=== PATIENT | female | born 1965 | race Caucasian/White ===

== ENCOUNTER 2021-11-26 08:23 | Outpatient (CLI) | payer OTHER, SELFPAY ==
--- NOTE | 2021-11-26 12:00 | NEURO_ITS ---
Impression: # Complains of numbness of left hand. # Mild evolving Carpal Tunnel Syndrome bilaterally, left more than right. # Mild left ulnar neuropathy across the elbow. # Normal needle/EMG exam. Nerve Conduction Studies Anti Sensory Summary Table Stim Site NR Peak (ms) P-T Amp (?V) Site1 Site2 Delta-P (ms) Dist (cm) Avila (m/s) Left Median Anti Sensory (2-3nd Digit) Wrist 2.9 92.0 Wrist 2-3nd Digit 2.9 14.0 48 Wrist 2.8 99.6 Wrist 2-3nd Digit 2.9 14.0 48 Right Median Anti Sensory (2-3nd Digit) Wrist 2.8 98.4 Wrist 2-3nd Digit 2.8 14.0 50 Wrist 2.8 115.5 Wrist 2-3nd Digit 2.8 14.0 50 Left Radial Anti Sensory (Base 1st Digit) Wrist 2.0 32.2 Wrist Base 1st Digit 2.0 0.0 Right Radial Anti Sensory (Base 1st Digit) Wrist 2.2 18.0 Wrist Base 1st Digit 2.2 0.0 Left Ulnar Anti Sensory (5th Digit) Wrist 2.4 56.9 Wrist 5th Digit 2.4 14.0 58 Right Ulnar Anti Sensory (5th Digit) Wrist 2.4 61.3 Wrist 5th Digit 2.4 14.0 58 Motor Summary Table Stim Site NR Onset (ms) O-P Amp (mV) Site1 Site2 Delta-0 (ms) Dist (cm) Avila (m/s) Left Median Motor (Abd Poll Brev) Wrist 3.9 3.7 Elbow Wrist 4.6 27.0 59 Elbow 8.5 3.5 Right Median Motor (Abd Poll Brev) Wrist 3.3 4.8 Elbow Wrist 4.7 27.0 57 Elbow 8.0 4.5 Left Ulnar Motor (Abd Dig Minimi) Wrist 2.2 7.7 A Elbow Wrist 5.6 28.0 50 A Elbow 7.8 7.2 B Elbow Wrist 4.1 22.0 54 B Elbow 6.3 3.1 Right Ulnar Motor (Abd Dig Minimi) Wrist 2.2 6.0 A Elbow Wrist 5.2 29.0 56 A Elbow 7.4 4.7 F Wave Studies NR F-Lat (ms) L-R F-Lat (ms) Left Median (Mrkrs) (Abd Poll Brev) 27.05 0.14 Right Median (Mrkrs) (Abd Poll Brev) 27.19 0.14 Left Ulnar (Mrkrs) (Abd Dig Min) 28.56 2.28 Right Ulnar (Mrkrs) (Abd Dig Min) 26.28 2.28 EMG Side Muscle Nerve Root Ins Act Fibs Amp Dur Recrt Comment Right 1stDorInt Ulnar C8-T1 Nml Nml Nml Nml Nml Right Ext Indicis Radial (Post Int) C7-8 Nml Nml Nml Nml Nml Right Ext Digitorum Radial (Post Int) C7-8 Nml Nml Nml Nml Nml Right BrachioRad Radial C5-6 Nml Nml Nml Nml Nml Right PronatorTeres Median C6-7 Nml Nml Nml Nml Nml Right Abd Poll Brev Median C8-T1 Nml Nml Nml Nml Nml Left 1stDorInt Ulnar C8-T1 Nml Nml Nml Nml Nml Left Ext Indicis Radial (Post Int) C7-8 Nml Nml Nml Nml Nml Left Ext Digitorum Radial (Post Int) C7-8 Nml Nml Nml Nml Nml Left BrachioRad Radial C5-6 Nml Nml Nml Nml Nml Left PronatorTeres Median C6-7 Nml Nml Nml Nml Nml Left Abd Poll Brev Median C8-T1 Nml Nml Nml Nml Nml MTDD
== END 2021-11-26 08:24 | disposition home or self-care (01) ==
PROVIDERS: PCP Internal Medicine; Visit Provider Internal Medicine
DX: R20.2 Paresthesia of skin (principal); G56.03 Carpal tunnel syndrome, bilateral upper limbs; G56.22 Lesion of ulnar nerve, left upper limb
CPT/HCPCS: 95886; 95911

== ENCOUNTER 2025-01-31 10:34 | Day surgery (SDC) | payer OTHER, SELFPAY ==
[2025-01-31] VITALS (8 sets, daily range): BP systolic 122–183; BP diastolic 86–118; PULSE 54–97; RESP 12–20; TEMP 36.4–37; O2SAT 97–100
--- NOTE | ~2025-01-31 | XR_ITS ---
EXAMINATION: XR retrograde pyelo w/stent LT DATE: 01/31/2025 15:00 INDICATION: Left internal ureteral stent placement TECHNIQUE: Fluoroscopic images from a left stent placement are submitted for review. 36 seconds of fluoroscopy time. FINDINGS: There is a left double-J internal ureteral stent projecting in expected position, with proximal [place] loop at the level of the renal pelvis and distal loop in the pelvis within the bladder lumen. IMPRESSION: 1. Left internal ureteral stent placement. Please refer to real-time procedural findings for details. Reviewed, dictated and finalized at location O. IMPRESSION: 1. Left internal ureteral stent placement. Please refer to real-time procedur al findings for details.
--- NOTE | ~2025-01-31 | XR_ITS ---
EXAMINATION: XR abdomen/kub 1V DATE: 01/31/2025 14:23 INDICATION: 5 mm proximal left ureteral stone TECHNIQUE: A supine view of the abdomen on 2 radiographs was obtained. COMPARISON: None. FINDINGS: 3 if a 4 mm stone in the proximal left ureter which projects slightly caudal to the left transverse process of L3. No other evident urolithiasis. No dilated gas-filled bowel to suggest obstruction. Lung bases are clear. Heart size is normal. Mild lumbar spondylosis. A few phleboliths in the pelvis appear IMPRESSION: 1. 3-4 mm proximal left ureteral stone. Reviewed, dictated and finalized at location A.
--- NOTE | ~2025-01-31 | CT_ITS ---
EXAMINATION: CT abdomen pelvis wo con DATE: 01/31/2025 11:24 INDICATION: Left flank pain. Left lower quadrant pain TECHNIQUE: Computed tomography (CT) of the abdomen and pelvis was performed without intravenous contrast. The dose-length product was 453.80 mGy-cm. COMPARISON: None. FINDINGS: Small opacities in the lower lungs. Fatty liver. Spleen, adrenal glands, pancreas and gallbladder are unremarkable. Abdominal aorta is partially calcified but is not aneurysmal. There is a 5 mm a calcification in the proximal left ureter causing mild left-sided hydronephrosis. Bladder is unremarkable. No enlarged lymph nodes in the abdomen or pelvis. No free fluid in the abdomen or pelvis. No dilated bowel loops. Moderate amount of stool. No colitis. Mild degenerative change in the lower lumbar spine. IMPRESSION: 1. Mild left-sided hydronephrosis secondary to a 5 mm calcification in the proximal left ureter. 2. Fatty liver Reviewed, dictated and finalized at location A. IMPRESSION: 1. Mild left-sided hydronephrosis secondary to a 5 mm calcification in the prox imal left ureter. 2. Fatty liver
[2025-01-31 10:56] LABS: Hematocrit 44.7 % (37.0-47.0); Hemoglobin 14.7 g/dL (12.0-15.0); Immature Granulocyte Percent A 0.5 % (0-0.5); Lymphocytes Absolute Auto 2.22 K/mm3 (0.9-3.2); Mean Corpuscular HGB Conc 32.9 g/dl (32-36); Mean Corpuscular Hemoglobin 29.1 pg (26-34); Mean Corpuscular Volume 88.3 fl (80-100); Nucleated Red Blood Cells Absolute Auto 0.000 K/mm3 (0.0-0.012); Nucleated Red Blood Cells Perc 0.0 % (0.0-0.2); Platelet Count Result 286 k/mm3 (150-375); Red Blood Count 5.06 M/mm3 (4.2-5.4); White Blood Count 7.3 K/mm3 (4.5-10.0)
[2025-01-31] MEDS: HYDROmorphone HCL INJ (*CRX) 1 MG/ML SYR 0.5 MG IV PUSH ×2 (10:59→12:13)
[2025-01-31] MEDS: ONDANSETRON INJ 4 MG/2 ML VIAL IV PUSH (11:00)
[2025-01-31] MEDS: SODIUM CHLORIDE 0.9% IV 1,000 ML 999 ML IV CONT (11:00)
[2025-01-31 11:10] LABS: Add Urine Microscopic? YES; Appearance Urine Cloudy (Clear); Glucose Urine UA Negative (Negative); Leukocyte Esterase Ur 2+ LEU/UL (Negative); Nitrate Urine Negative (Negative); Non Pathogenic Casts 0-2; Specific Grav Ur 1.023 (1.001-1.035)
--- OUTSIDE RECORDS SUMMARY | 2025-01-31 11:11 | XMS_ITS | Encounter Summary ---
Author Organization [facility] Address [address] [place] [address] Care Team Providers Care Pricing Actuary Name Role Phone Ancelmo Brown MD Primary Care Provider Encounter Details Date Type Department Care Team (Late st Contact Info) Description 05/06/2023 Telephone [facility] - Cardiology [address] [facility], [facility] [address] [place] [address] Ольга Trujillo MD [address] [place] [address] Social History Tobacco Use Types Packs/Day Years Used Date Smoking Tobacco: Never Smokeless Tobacco: Never Alcohol Use Standard Drinks/Week Comments Never 0 (1 standard drink = 0.6 oz pur e alcohol) Comments No Sex and Gender Information Value Date Recorded Sex Assigned at Not on file Legal Sex Female 3:47 PM CDT Gender Identity Not on file Sexual Orientation Not on file documented as of this encounter Functional Status * Is person deaf or have serious hearing difficulty? Answer Date of Assessment Author No 08/26/2022 2:47 PM CDT Josué Ramirez RN * Is person blind or have serious difficulty seeing? Answer Date of Assessment Author No 08/26/2022 2:47 PM CDT Josué Ramirez RN * Does person have serious difficulty walking/climbing stairs? Answer Date of Assessment Author No 08/26/2022 2:47 PM CDT Josué Ramirez RN * Does person have difficulty dressing/bathing? Answer Date of Assessment Author No 08/26/2022 2:47 PM CDT Josué Ramirez RN * Does person have difficulty doing errands alone? Answer Date of Assessment Author No 08/26/2022 2:47 PM CDT Josué Ramirez RN documented as of this encounter Mental Status * Does person have difficulty concentrating/remembering/making decisions? Answer Entry Date Author No 08/26/2022 2:47 PM CDT Josué Ramirez RN documented in this encounter Miscellaneous Notes * Telephone Encounter - Martha Sawyer - 05/06/2023 9:44 AM CST Talked to patient. She will call back to reschedule appt on 06/21/[address] Trujillo. KER SOLES documented in this encounter Plan of Treatment Upcoming Encounters Date Type Department Care Team (Late st Contact Info) Description 08/15/2025 2:00 PM CHALKER SOLES Office Visit [facility] - Cardiology [address] [phone] Duran Harrison MD [address] [facility], [place] [id number] [place] [address] documented as of this encounter Visit Diagnoses Not on filedocumented in this encounter Care Teams Pricing Actuary Relationship Specialty Start Date End Date Ancelmo Brown MD [address] [facility] [address] [place] [address] PCP - General 05/10/22 documented as of this encounter
--- OUTSIDE RECORDS SUMMARY | 2025-01-31 11:11 | XMS_ITS | Clinical Summary ---
Author Organization [facility] Mobile Location, IP Address [address] [place] [address] Care Team Providers Care Clinical Outcomes Manager Name Role Phone Ancelmo Brown MD Primary Care Provider Source Comments [facility] Mobile Location, IP,non-owned Affiliates and Associated Physician Practices is amultiple site organization consisting of ambulatory clinics and hospital sitesin [place], [place], [place]. This disclosure is being madepursuant to the Care Everywhere program and may not contain all information available regarding this patient. Last updated 18.[facility] Mobile Location, [place] Allergies No known active allergies Medications * Be aware that medications may not be up to date on this document. Alwaysverify current medications with the patient. aspirin EC (Ecotrin) 81 MG tablet every 24 hours Activ e acetaminophen (Tylenol) 500 MG tablet Take 1 (one) tablet by mouth every 4 hours as needed for Fever or Pain Maximum allowable Acetaminophen amount = 4 Grams (4000 mg) / 24 hours. Active apixaban (Eliquis) 5 MG tabletIndicatio ns:Paroxysmal atrial fibrillation (HCC) Take 1 (one) tablet by mouth 2 times daily 180 tablet 3 023 Active Additional Information Patient not taking.Reported on 10/19/2022 anastrozole (Arimidex) 1 MG tablet Take 1 (one) tablet by mouth once daily 025 Active buPROPion XL 24hr (Wellbutrin-XL) 300 MG tablet Take 1 (one) tablet by mouth once daily 025 2025 Active metoprolol succinate XL 24hr (Toprol XL) 50 MG tablet TAKE ONE AND ONE-HALF TABLETS ONCE DAILY 135 tablet 3 025 Active metoprolol succinate XL 24hr (Toprol XL) 50 MG tablet Take 1.5 (one and one-half) tablets by mouth once daily 135 tablet 3 024 2024 Discontinued Active Problems Problem Noted Date Diagnosed Date Paroxysmal atrial fibrillation 07/20/2022 Overview (07/20/2022): Added automatically from request for surgery [id number] Encounters Date Type Department Care Team Description 01/24/2025 Refill [facility] - Cardiology [address] [facility], [facility] [address] [place] [address] Cora Cardoso, INSPECTOR [employer]-LOCAL 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 (F LUZONE; FLULAVAL; FLUARIX; AFLURIA QUADRIVALENT; 6MO+), 0.5 ML (IIV4) 05/04/2021,03/29/2020 Social History Tobacco Use Types Packs/Day Years Used Date Smoking Tobacco: Never Smokeless Tobacco: Never Alcohol Use Standard Drinks/Week Comments Never 0 (1 standard drink = 0.6 oz pur e alcohol) Comments No Sex and Gender Information Value Date Recorded Sex Assigned at Not on file Legal Sex Female 3:47 PM CDT Gender Identity Not on file Sexual Orientation Not on file Last Filed Vital Signs Vital Sign Reading Time Taken Comments Blood Pressure 130/82 08/16/2024 1:37 PM [employer]OLEUM LAYER APPRENTICE Pulse 78 08/16/2024 1:37 PM [employer]OLEUM LAYER APPRENTICE Temperature 36.9 C (98.4 F) 08/26/2022 2:30 PM CDT Respiratory Rate 16 08/26/2022 5:45 PM CDT Oxygen Saturation 98% 08/16/2024 1:37 PM [employer]OLEUM LAYER APPRENTICE Inhaled Oxygen Concentration - - Weight 79.8 kg (176 lb) 08/16/2024 1:37 PM [employer]OLEUM LAYER APPRENTICE Height 170.2 cm (5' 7) 08/16/2024 1:37 PM LINOLEUM LAYER APPRENTICE Body Mass Index 27.57 08/16/2024 1:37 PM LINOLEUM LAYER APPRENTICE Plan of Treatment Upcoming Encounters Date Type Department Care Team (Late st Contact Info) Description 08/15/2025 2:00 PM LINOLEUM LAYER APPRENTICE Office Visit [facility] - Cardiology [address] [facility], [facility] [address] [place] [address] Duran Harrison MD [address] [facility], [facility] [address] [place] [address] Health Maintenance Due Date Last Done Comments COLOGUARD (AGES 45-75) - COLON CA SCREENING 1967 COLON MONITORING 1967 COLONOSCOPY - COLON CA SCREENING 1967 CT COLONOGRAPHY - COLON CA SCREENING 1967 Colorectal Cancer Screening 1967 FIT - COLON CA SCREENING 1967 FLEX SIG - COLON CA SCREENING 1967 LIPID TESTING 1967 HIV SCREENING 12/04/1982 DTAP/TDAP/TD VACCINES (1 - Tdap) 12/04/1986 HEPATITIS B VACCINE (1 of 3 - 19+ 3-dose series) 12/04/1986 PAP SMEAR 12/04/1988 PNEUMOCOCCAL VACCINE 50+ (1 of 1 - PCV) 12/04/2017 ZOSTER VACCINE (1 of 2) 12/04/2017 COVID-19 VACCINE (3 - season) 2024 04/13/2021, 07/10/2020 DEPRESSION SCREENING 06/13/2024 INFLUENZA VACCINE (#1) 2025 , 03/29/2020, 03/16/2018, Additional history exists MAMMOGRAM 02/16/2025 02/16/2023, 09/0 11/2022, 12/07/2021, Additional history exists SCREENING FOR DIABETES 06/26/2027 , 08/31/2023, 08/26/2022, Additional history exists HEPATITIS C SCREENING Completed 06/26/2024, 025 HIB VACCINE Aged Out No longer eligi ble based on patient's age to complete this topic HPV VACCINE Aged Out No longer eligi ble based on patient's age to complete this topic MENINGOCOCCAL (Group B) VACCINE SHARED DECISION-MAKING Aged Out No longer eligible based on patient's age to complete this topic MENINGOCOCCAL GROUPS A/C/Y/W VACCINE Aged Out No longer eligible based on patient's age to complete this topic Procedures Procedure Name Priority Date/Time Associated Diagnosis Comments BASIC METABOLIC PANEL (CALCIUM TOTAL) STAT 08/26/2022 6:54 AM CDT Paroxysmal atrial fibrillation from Last 3 Months or Most Recently Relevant to Health Maintenance Results * (ABNORMAL) BASIC METABOLIC PANEL (CALCIUM TOTAL) (08/26/2022 6:54 AM CDT) BUN 19 7 - 26 mg/dL 08/26/2022 7:38 AM [facility] Creatinine 0.81 0.56 - 0.96 mg/dL 08/26/2022 7:38 AM [facility] Sodium 143 136 - 145 mmol/L 08/26/2022 7:38 AM [facility] Potassium 4.5 3.5 - 4.5 mmol/L 08/26/2022 7:38 AM [facility] Chloride 106 98 - 107 mmol/L 08/26/2022 7:38 AM [facility] CO2 26 22 - 29 mmol/L 08/26/2022 7:38 AM [facility] Glucose 109 70 - 115 mg/dL 08/26/2022 7:38 AM [facility] Calcium 9.7 8.4 - 10.2 mg/dL 08/26/2022 7:38 AM [facility] Anion Gap 16 8 - 18 08/26/2022 7:38 AM [facility] BUN/Creatinine Ratio 23 7 - 23 08/26/2022 7:38 AM [facility] Osmolality Calculated 299 270 - 300 mOsm/kg 08/26/2022 7:38 AM [facility] eGFR by CKD-EPI 86(L) >=90 mL/min/1.7 3 m2 08/26/2022 7:38 AM [facility] Blood BLOOD SPECIMEN / Unknown Venipuncture / Unknown 08/26/2022 6:54 AM CDT 08/26/2022 7:16 AM CDT Ольга Trujillo MD LAB - CHEMISTRY RAJESH VALENZUELA Final Result [facility] [address] [place] [address], [facility] [phone] from Last 3 Months or Most Recently Relevant to Health Maintenance Insurance Care Teams Clinical Outcomes Manager Relationship Specialty Start Date End Date Ancelmo Brown MD [address] [place] [address] PCP - General 05/10/22
--- OUTSIDE RECORDS SUMMARY | 2025-01-31 11:11 | XMS_ITS | Clinical Summary ---
Author Organization [facility] D Address [address] [place] [id number] Care Team Providers Care Mushroom Picker Name Role Phone Ancelmo Brown MD Primary Care Provider Shawn Bowen MD Unavailable [phone] Evy Del Toro MD Unavailable [phone] Ольга Trujillo MD Unavailable [phone] Osei Patton MD PhD Unavailable Allergies No known active allergies Medications metoprolol XL (TOPROL-XL) 50 mg extended release tabletIndicati ons:Atrial Arrhythmia Take 1.5 tablets (75 mg total) by mouth every morning 3 Active anastrozole (ARIMIDEX) 1 mg tablet TAKE 1 TABLET DAILY 90 tablet 3 5 Active Additional Information Patient taking differently:1 mg oralEvery morning, Indications: prevention of breast cancer in high risk women, Informant: Self, Reported on 01/17/2025 buPROPion XL (WELLBUTRIN XL) 300 mg 24 hr tablet Take 1 tablet (300 mg total) by mouth daily 30 tablet 11 5 01/18/20 25 Discontin ued(Thera py completed ) Active Problems Problem Noted Date Diagnosed Date Elevated LFTs 06/28/2024 NAFLD (nonalcoholic fatty liver disease) 025 Overweight with body mass in dex (BMI) of 28 to 28.9 in adult 06/21/2024 H/O bilateral mastectomy 11/25/2023 Invasive ductal carcinoma of breast, female, lef t 11/10/2023 Malignant neoplasm of left female breast 024 Cancer Staging:Pathologic stage from 11/10/2023:Stage IA(pT1c, pN0(sn), cM0, G2, ER+, SD+, HER2-, Oncotype DX score: 23) - Signed by Osei Patton MD PhD on 12/06/2023 Malignant neoplasm of upper- inner quadrant of left breast in female, estrogen receptor positive 10/09/2023 Breast cancer screening, high risk patient 06/08 Monoallelic mutation of PALB2 gene 02/07/2023 Overview (02/07/2023): Images from the original note were not included. [employer] Genetic Panel Testing Amended January 2023 PALB2 c.3113+5GC clinically significant mutation identified. Family history of breast cancer 09/21/2017 Resolved Problems Problem Noted Date Diagnosed Date Resolved Date Heterogeneously dense tissue of both breasts on mammography 06/08/2023 07/01/2024 Encounter for screening mamm ogram for breast cancer 06/08/2023 07/01/2024 Breast cyst, right 09/20/2017 Encounters Date Type Department Care Team Description 11/12/2024 Telephone [facility] [address] [facility] 6[address] [place] [address] [place] [address] Chichi Fofana MD from Last 3 Months Immunizations Immunization Administration Dates Next Due Influenza, Quadrivalent, Spl it, Intramuscular 03/13/2018 Influenza, Quadrivalent, Spl it, Preservative Free, Intramuscular 05/04/2021,03/29/2020,03/16/2018 Surgical History Surgery Date Site/Laterality Comments BREAST LUMPECTOMY 06/13/1998 - 06/12/1999 Benign LAPAROSCOPIC TOTAL HYSTERECTOMY 05/03/2007 Ovaries left intact FOOT SURGERY 06/13/1994 - 06/12/[address] UDY AND ABLATION 06/13/2022 - 06/12/2023 LAPAROSCOPIC SALPINGOOPHERECTOMY 09/14/2023 Bilatera l Benign path BREAST BIOPSY 09/28/2023 Left MASTECTOMY 10/12/2023 - 11/11/2023 Bilateral RECONSTRUCTION BREAST IMMEDI ATE / DELAYED W/ 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 ENGINEER 05/13/2024 - 06/12/2024 Medical History Medical History Date Comments BRCA2 negative BRCA1 negative Monoallelic mutation of PALB2 gene 02/07/2023 At high risk for breast cancer Arthritis Arrhythmia Cancer (HCC) Left Breast Family History Medical History Relation Name Comments Liver cancer Brother 1 Bile Duct No Known Problems Brother 2 PALB2 mutation Daughter Prostate cancer Father Prostate cancer Father's Brother 1 Coronary artery disease Maternal Grandfather Breast cancer Maternal Grandmother Atrial fibrillation Mother Breast cancer Mother no genetic prasanna ting Heart attack Mother Breast cancer Mother's Sister PALB 2 mutation Niece 1 PALB 2 mutation Niece 2 Melanoma Other aunt Prostate cancer Paternal Grandfather Anesthesia problems Neg Hx Relation Name Status Comments Brother 1 (Age 55) Brother 2 Alive Daughter Alive Father Alive Father's Brother 1 Alive Father's Brother 2 uncertain of age or age at Father's Sister 1 (Age 84) Father's Sister 2 Alive Maternal Grandfather (Age 57) Maternal Grandmother (Age 91) Mother Alive Mother's Sister Niece 1 Alive Niece 2 Alive Other aunt Paternal Grandfather (Age 81) Paternal Grandmother (Age 98) Son Alive Social History Tobacco Use Types Packs/Day Years Used Date Smoking Tobacco: Never Passive Smoke Exposure: Past Smokeless Tobacco: Never Tobacco Cessation:Counseling Given: Not Answered AUDIT-C Answer Date Recorded Q1: How often do you have a drink containing alc ohol? 2-4 times a month 01/17/2025 Q2: How many drinks containi ng alcohol do you have on a typical day when you are drinking? 1 or 2 01/17/2025 Q3: How often do you have si x or more drinks on one occasion? Never 01/17/2025 Personal Safety Answer Date Recorded Have you ever been in or are you currently in a harmful physical or emotional relationship or is someone making you feel afraid or unsafe? 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 # 2: 02/20/1998 39 1/2 wks, girl, Katy Perez, 9#3, DW at [facility]. Last Filed Vital Signs Vital Sign Reading Time Taken Comments Blood Pressure 132/73 08/24/2024 11:35 AM CDT Pulse 84 08/24/2024 11:35 AM CDT Temperature 36.3 C (97.3 F) 08/24/2024 11:35 AM CDT Respiratory Rate 16 08/24/2024 11:35 AM CDT Oxygen Saturation 98% 08/24/2024 11:35 AM CDT Inhaled Oxygen Concentration - - Weight 77.1 kg (170 lb) 01/17/2025 4:55 PM CDT Height 170.2 cm (5' 7) 01/17/2025 4:55 PM CDT Body Mass Index 26.63 01/17/2025 4:55 PM CDT Plan of Treatment Upcoming Encounters Date Type Department Care Team (Late st Contact Info) Description 02/04/2025 7:30 AM CDT Hospital Encounter [facility] [address] [place] [address] Chichi Fofana MD [address] [phone] [place] [address] 02/04/2025 7:30 AM CDT Anesthesia Event [facility] [address] [place] [address] Saskia Whitten NP [address] [place] [address] 02/04/2025 7:30 AM CDT - 02/04/2025 9:55 AM CDT Surgery [facility] [address] [place] [address] Chichi Fofana MD [address] [phone] [place] [address] REVISION BREAST Scheduled Procedures Name Priority Associated Diagnoses Date/Ti me REVISION BREAST H/O bilateral mastectomy 02/04/2025 7:30 AM CDT FAT GRAFTING H/O bilateral mastectomy 02/04/2025 7:30 AM CDT EXCISION CYST/LESION/MASS - ABDOMEN H/O bilateral mastectomy 02/04/2025 7:30 AM CDT Health Maintenance Due Date Last Done Comments Colon Cancer Screening-Colonoscopy 1965 Depression Screening 1965 DTaP/Tdap/Td Vaccine (1 - Tdap) 12/04/1978 Regular Well Visit/Exam 18-64 12/04/1985 Pneumococcal vaccine <65 (1 of 2 - PCV) 12/04/1986 Zoster Vaccine (1 of 2) 12/04/1986 Breast Cancer Screening-Mammogram 02/17/2024 02/16/2023, 12/07/2021, 10/23/2018, Additional history exists Influenza Vaccine (#1) 2025 , 03/29/2020, 03/16/2018, Additional history exists Hepatitis B Screening Completed 06/26/2024 Hepatitis C Screening Completed 06/26/2024 Goals Goal Patient Goal Type Associated Problems Recent Progress Patient-Stated? Author Autogenerat ed Goal Care Plan Autogenerated Problem No Jonny [employer] Implanted Type Area Bus System Operator Device Identifier Shelf Expiration Date Model / Serial / Lot [employer] Implant Mammary Natrelle Te Smooth 073c-[id number]-38-[id number] With Fourte 325m-Vf-35-T - [id number] - [id number] Implanted:Qty: 1 on 11/10/2023 by Chichi Fofana MD at [facility] Breast Left: Breast [employer] 02/14/2028 133S-FX-1 1-T / [id number] / [id number] [employer] Implant Mammary Natrelle Te Smooth [id number]-Wk-75-T With Fourte 630p-Lz-74-T - [id number] - [id number] Implanted:Qty: 1 on 11/10/2023 by Chichi Fofana MD at [facility] Breast Right: Breast [employer] [id number] 01/10/2028 133S-FX-1 1-T / [id number] / [id number] [employer] Implant Breast High Profile Smooth Memorygel Boost 405cc Gel [id number] - [id number] - [id number] Implanted:Qty: 1 on 05/28/2024 by Chichi Fofana MD at [facility] Breast Right: Breast [employer] 08/13/2028 [id number] / [id number] / [employer] Implant Breast High Profile Smooth Memorygel Boost 405cc Gel [id number] - [id number] - [id number] Implanted:Qty: 1 on 05/28/2024 by Chichi Fofana MD at [facility] Breast Left: Breast [employer] 10/01/2028 [id number] / [id number] / [employer] Marker Biospy Site Top Hat Shape [employer]ark Mzhuf-Fvypfg-[id number] - [id number] Implanted:Qty: 1 on 09/28/2023 by Bennett Abel MD at [facility] Left: Breast [employer] [id number] 05/26/2024 SMARK-CONCHA ERO-2S / / [id number] Explanted Type Area Bus System Operator Device Identifier Shelf Expiration Date Model / Serial / Lot [employer] Implant Breast High Profile Smooth Memorygel Boost 405cc Gel [id number] - [id number] - [id number] Explanted:Qty: 1 on 05/28/2024 by Chichi Fofana MD at [facility] Breast [employer] 12/18/2028 [id number] / [id number] / Description:SIZER. IMPLANT A ND EXPLANT [employer] Implant Breast High Profile Smooth Memorygel Boost 370cc Gel [id number] - [id number] - [id number] Explanted:Qty: 1 on 05/28/2024 by Chichi Fofana MD at [facility] Breast Right: Breast [employer] 08/12/2028 [id number] / [id number] / Description:SIZER. IMPLANT A ND EXPLANT [employer] Implant Breast High Profile Smooth Memorygel Boost 405cc Gel [id number] - [id number] - [id number] Explanted:Qty: 1 on 05/28/2024 by Chichi Fofana MD at [facility] Breast Left: Breast [employer] 07/13/2028 [id number] / [id number] / Description:SIZER. 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 There is no laboratory evidence of HCV infection. In most cases, no further action is required. However, if recent HCV exposure is suspected, a test for HCV RNA (test code 06312) is suggested. For additional information please refer to http://education.[employer]/faq/LFH14l3 (This link is being provided for informational/ educational purposes only.) Blood 06/26/2024 7:53 AM AUTO COLLISION REPAIR INSTRUCTOR 06/26/2024 7:56 AM AUTO COLLISION REPAIR INSTRUCTOR Cecil Felder MD LAB MICROBIOLOGY - GENER AL ORDERABLES Final Result SAMRA Chamberlain-Rubens [address] [address] [phone] * Screening Mammogram Bilateral [place] (02/16/2023 9:47 AM CDT) Anatomical Region Laterality Modality Breast Bilateral Mammography Narrative 02/16/2023 12:21 PM CDT Examination: Screening Mammogram Bilateral W [place]: 02/16/23 Clinical: Screening mammogram, encounter for. Prior Study Comparisons: Comparison was made to the prior available relevant studies at the time of interpretation. Findings: Bilateral No significant masses, malignant type calcifications, skin thickening, nipple retraction, or significant lymphadenopathy is noted in either breast. The CAD review showed no significant findings. The breasts are heterogeneously dense, which may obscure small masses. The patient will be notified of results by letter. Impression: BI-RADS ATLAS category (overall): 1 - Negative There is no mammographic evidence of malignancy. Routine Screening Mammogram in 1 Yr is recommended for bilateral Overall Assessment: 1 - Negative Self Screening Mammogram IMG MAMMO PROCEDURES Fi nal Result from Last 3 Months or Most Recently Relevant to Health Maintenance Additional Health Concerns Active Problems Noted Date Diagnosed Date Autogenerated Problem 11/14/2024 Insurance [facility] CHO[facility] PLUS [place] [id number] Advance Directives For more information, please contact: [phone] * Full Code (Latest Code Status on File) Date Activated Date Inactivated Comments 11/10/2023 5:13 PM 11/11/2023 3:20 PM * Full Code Date Activated Date Inactivated Comments 09/14/2023 1:14 PM 09/15/2023 10:31 AM Care Teams Mushroom Picker Relationship Specialty Start Date End Date Ancelmo Brown MD PCP - General Internal Medicine 09/21/17 Shawn Bowen MD [address] [facility] [address] [place] [address] Consulting Physician Obstetrics and Gynecology 09/21/17 KateyEvy MD [address] [facility] [address] DIV IM MEDICAL ONCOLOGY, [facility] [address] [place] [address] Surgeon Breast Surgery 04/21/23 Ольга Trujillo MD [address] [facility] [address] DIV IM MEDICAL ONCOLOGY, [facility] [address] [place] [address] Internal Medicine 08/31/23 Osei Patton MD PhD [address] [facility] [address] DIV IM MEDICAL ONCOLOGY, [address] [place] [address] Medical Oncologist/Automotive Parts Coordinator Medical Oncology 10/20/23
[2025-01-31 11:17] LABS: Alanine Aminotransferase 63 U/L (6-35); Albumin Level 5.0 g/dL (3.5-5.1); Alkaline Phosphatase 100 U/L (38-126); Anion Gap 13 mmol/L (4-12); Aspartate Amino Transferase 50 U/L (14-36); Bilirubin,Total 0.5 mg/dL (0.2-1.3); Blood Urea Nitrogen 23 mg/dL (7-17); Calcium 10.4 mg/dL (8.4-10.2); Carbon Dioxide 22 mmol/L (22-30); Chloride 103 mmol/L (98-107); Estimated CRCL calculation 57 ml/min; Estimated Glomerular Filt Rate > 60; Glucose 121 mg/dL (65-110); Potassium 4.1 mmol/L (3.4-5.0); Sodium 138 mmol/L (137-145); Total Protein 8.4 g/dL (6.3-8.2)
--- NOTE | 2025-01-31 11:48 | ED_ITS ---
HPI - Back Pain/Injury General Chief Complaint: Back Pain/Injury <Lori Costa PA-C - Last Filed: 01/31/25 14:48> Stated Complaint: flank pain <CAREN Morgan Last Filed: 01/31/25 14:48> Time Seen by Provider: 01/31/25 10:39 <CAREN Morgan Last Filed: 01/31/25 14:48> Source: patient <CAREN Morgan Last Filed: 01/31/25 14:48> Mode of arrival: ambulatory <CAREN Morgan Last Filed: 01/31/25 14:48> Limitations: no limitations <CAREN Morgan Last Filed: 01/31/25 14:48> History of Present Illness HPI Narrative: Patient is a 59-year-old female who presents the ED with report of left flank pain. Patient reports she woke up this morning and had some discomfort throughout her left flank region. Pain has progressively worsened over the last hour and half. Present throughout left flank and radiates to left lower abdomen. Unable to find any comfortable position. Has not taken anything for pain. Reports nausea, denies vomiting. Denies difficulty urinating. Denies fevers. Denies history of similar pain. Denies hx of kidney stones. <CARNE Morgan Last Filed: 01/31/25 14:48> Related Data Allergies/Adverse Reactions: Allergies Allergy/AdvReac Type Severity Reaction Status Date / Time No Known Allergies Allergy Verified 01/31/25 10:59 <CAREN Morgan Last Filed: 01/31/25 14:48> Review of Systems 2 Review of Systems: All systems reviewed & are unremarkable except as noted in HPI. <CAREN Morgan Last Filed: 01/31/25 14:48> All systems reviewed & are unremarkable except as noted in HPI and below < CAREN Morgan Last Filed: 01/31/25 14:48> [facility] Past Medical History Medical History: Medical History History of breast cancer Atrial fibrillation <Lori Costa PA-C - Last Filed: 01/31/25 14:48> Surgical History Surgical History: Surgical History H/O cardiac radiofrequency ablation <Lori Costa PA-C - Last Filed: 01/31/25 14:48> Exam 2 Narrative: GENERAL: Uncomfortable, difficulty sitting still, obese with BMI of 30.4, non- toxic, in moderate acute distress due to pain HEAD: Normocephalic, atraumatic. RESPIRATORY: Airway patent, respirations nonlabored. Clear to auscultation bilaterally, no rales, rhonchi, wheezing. CARDIOVASCULAR: Regular rate and rhythm without murmurs, rubs, or gallops. ABDOMINAL: Soft, tenderness to palpation in left lower abdomen, nondistended. Normoactive BS. Positive left flank tenderness MUSCULOSKELETAL: Moves all extremities. No gross deformities. SKIN: Warm, dry, normal color. NEURO: A&O X3. Speech clear. No ataxic movements. PSYCHIATRIC: Appropriate mood and affect. Normal interaction. <Lori Costa PA-C - Last Filed: 01/31/25 14:48> Course Vital Signs Vital signs: Vital Signs Temperature 98.6 F 01/31/25 10:39 Pulse Rate 54 L 01/31/25 10:39 Respiratory Rate 18 01/31/25 10:39 Blood Pressure 177/118 H 01/31/25 10:39 Pulse Oximetry 99 01/31/25 10:39 Oxygen Delivery Room Air 01/31/25 10:39 Temperature 97.6 F 01/31/25 15:00 Pulse Rate 75 01/31/25 16:18 Respiratory Rate 18 01/31/25 16:18 Blood Pressure 122/86 01/31/25 16:18 Pulse Oximetry 99 01/31/25 15:40 Oxygen Delivery Room Air 01/31/25 16:18 Oxygen Flow Rate 8 01/31/25 15:15 <Lori Costa PA-C - Last Filed: 01/31/25 14:48> Vital Signs Temperature 98.6 F 01/31/25 10:39 Pulse Rate 54 L 01/31/25 10:39 Respiratory Rate 18 01/31/25 10:39 Blood Pressure 177/118 H 01/31/25 10:39 Pulse Oximetry 99 01/31/25 10:39 Oxygen Delivery Room Air 01/31/25 10:39 Temperature 97.6 F 01/31/25 15:00 Pulse Rate 75 01/31/25 16:18 Respiratory Rate 18 01/31/25 16:18 Blood Pressure 122/86 01/31/25 16:18 Pulse Oximetry 99 01/31/25 15:40 Oxygen Delivery Room Air 01/31/25 16:18 Oxygen Flow Rate 8 01/31/25 15:15 <Sai Hernandez MD - Last Filed: 01/31/25 19:42> MDM - Back Pain/Injury MDM Narrative Medical decision making narrative: Patient presented to ED with left flank and abdominal pain, onset this morning. No history of similar pain. Vital signs are stable upon arrival, however patient is very uncomfortable appearing. Pain medication initiated. Cbc without leukocytosis or anemia. CMP fairly unremarkable appearing anion gap of 13. Kidney function is stable. Minimal transaminitis. UA concerning for infection with 2+ leuk esterase, greater than 100 RBC, 51-100 WBC. Sent for culture. Patient started on Rocephin. CT scan of abdomen/pelvis was obtained, showing proximal L 5mm stone, with hydronephrosis. Patient given 2 doses of 0.5mg Dilaudid. She is feeling improved on reeval, but is very worried the pain will soon recur when medication wears off. Also worried because she has a breast reconstructive surgery scheduled for Tuesday. Discussed case with Dr. Maxwell, urology, will take patient to the OR today for stent placement. Likely D/C home afterwards. Patient in agreement with plan. All questions answered. <Lori Costa PA-C - Last Filed: 01/31/25 14:48> Patient presented to ED with left flank and abdominal pain, onset this morning. No history of similar pain. Vital signs are stable upon arrival, however patient is very uncomfortable appearing. Pain medication initiated. Cbc without leukocytosis or anemia. CMP fairly unremarkable appearing anion gap of 13. Kidney function is stable. Minimal transaminitis. UA concerning for infection with 2+ leuk esterase, greater than 100 RBC, 51-100 WBC. Sent for culture. Patient started on Rocephin. CT scan of abdomen/pelvis was obtained, showing proximal L 5mm stone, with hydronephrosis. Patient given 2 doses of 0.5mg Dilaudid. She is feeling improved on reeval, but is very worried the pain will soon recur when medication wears off. Also worried because she has a breast reconstructive surgery scheduled for Tuesday. Discussed case with Dr. Maxwell, urology, will take patient to the OR today for stent placement. Likely D/C home afterwards. Patient in agreement with plan. All questions answered. <Sai Hernandez MD - Last Filed: 01/31/25 19:42> Medical Records Attestation: I reviewed the patient's medical records. <Lori Costa PA-C - Last Filed: 01/31/25 14:48> Lab Data Attestation: I reviewed the patient's lab results. <Lori Costa PA-C - Last Filed: 01/31/25 14:48> Result diagrams: 01/31/25 10:50 01/31/25 10:50 <Lori Costa PA-C - Last Filed: 01/31/25 14:48> Labs: Lab Results 01/31/25 01/31/25 Range/Units 10:50 11:00 WBC 7.3 (4.5-10.0) K/mm3 RBC 5.06 (4.2-5.4) M/mm3 Hgb 14.7 (12.0-15.0) g/dL Hct 44.7 (37.0-47.0) % MCV 88.3 (80-100) fl MCH 29.1 (26-34) pg MCHC 32.9 (32-36) g/dl RDW 12.3 (11.5-14.5) % Plt Count 286 (150-375) k/mm3 MPV 9.5 (7.4-10.4) fl Immature Gran % (Auto) 0.5 (0-0.5) % Neut % (Auto) 62.7 (45.5-73.1) % Lymph % (Auto) 30.3 (18.3-44.2) % Allen % (Auto) 4.9 (2.6-8.5) % Eos % (Auto) 1.1 (0-4.4) % Baso % (Auto) 0.5 (0.2-1.2) % Lymph # (Auto) 2.22 (0.9-3.2) K/mm3 Allen # (Auto) 0.4 (0.1-0.6) K/mm3 Eos # (Auto) 0.1 (0-0.3) K/mm3 Baso # (Auto) 0.0 (0.0-0.1) K/mm3 Abs Immat Gran (auto) 0.04 H (0.00-0.031) K/mm3 Absolute Neuts (auto) 4.6 (1.3-6.7) K/mm3 Absolute Nucleated RBC 0.000 (0.0-0.012) K/mm3 Nucleated RBC % 0.0 (0.0-0.2) % Sodium 138 (137-145) mmol/L Potassium 4.1 (3.4-5.0) mmol/L Chloride 103 (98-107) mmol/L Carbon Dioxide 22 (22-30) mmol/L Anion Gap 13 H (4-12) mmol/L BUN 23 H (7-17) mg/dL Creatinine 0.94 (0.7-1.0) mg/dL Estim Creat Clear Calc 57 ml/min Estimated GFR > 60 (59 - ) Glucose 121 H (65-110) mg/dL Calcium 10.4 H (8.4-10.2) mg/dL Total Bilirubin 0.5 (0.2-1.3) mg/dL AST 50 H (14-36) U/L ALT 63 H (6-35) U/L Alkaline Phosphatase 100 (38-126) U/L Total Protein 8.4 H (6.3-8.2) g/dL Albumin 5.0 (3.5-5.1) g/dL Urine Color Yellow (Yellow) Urine Appearance Cloudy H (Clear) Urine pH 5.5 (5.0-9.0) Ur Specific [place] 1.023 (1.001-1.035) Urine Protein 1+ H (Negative) mg/dL Urine Glucose (UA) Negative (Negative) mg/dL Urine Ketones Negative (Negative) mg/dL Ur Blood (Man) 3+ H (Negative) Urine Nitrate Negative (Negative) Urine Bilirubin Negative (Negative) Urine Urobilinogen 0.2 (<2.0) mg/dL Leukocyte Esterase Rfl 2+ H (Negative) ANDRIY/UL Urine RBC >100 H (0-2) /hpf Urine WBC 51-100 H (0-3) /hpf Ur Squamous Epith Cells Few (Few) /hpf Urine Bacteria None seen /hpf Urine Casts 0-2 <Lori Costa PA-C - Last Filed: 01/31/25 14:48> Lab Results 01/31/25 01/31/25 Range/Units 10:50 11:00 WBC 7.3 (4.5-10.0) K/mm3 RBC 5.06 (4.2-5.4) M/mm3 Hgb 14.7 (12.0-15.0) g/dL Hct 44.7 (37.0-47.0) % MCV 88.3 (80-100) fl MCH 29.1 (26-34) pg MCHC 32.9 (32-36) g/dl RDW 12.3 (11.5-14.5) % Plt Count 286 (150-375) k/mm3 MPV 9.5 (7.4-10.4) fl Immature Gran % (Auto) 0.5 (0-0.5) % Neut % (Auto) 62.7 (45.5-73.1) % Lymph % (Auto) 30.3 (18.3-44.2) % Allen % (Auto) 4.9 (2.6-8.5) % Eos % (Auto) 1.1 (0-4.4) % Baso % (Auto) 0.5 (0.2-1.2) % Lymph # (Auto) 2.22 (0.9-3.2) K/mm3 Allen # (Auto) 0.4 (0.1-0.6) K/mm3 Eos # (Auto) 0.1 (0-0.3) K/mm3 Baso # (Auto) 0.0 (0.0-0.1) K/mm3 Abs Immat Gran (auto) 0.04 H (0.00-0.031) K/mm3 Absolute Neuts (auto) 4.6 (1.3-6.7) K/mm3 Absolute Nucleated RBC 0.000 (0.0-0.012) K/mm3 Nucleated RBC % 0.0 (0.0-0.2) % Sodium 138 (137-145) mmol/L Potassium 4.1 (3.4-5.0) mmol/L Chloride 103 (98-107) mmol/L Carbon Dioxide 22 (22-30) mmol/L Anion Gap 13 H (4-12) mmol/L BUN 23 H (7-17) mg/dL Creatinine 0.94 (0.7-1.0) mg/dL Estim Creat Clear Calc 57 ml/min Estimated GFR > 60 (59 - ) Glucose 121 H (65-110) mg/dL Calcium 10.4 H (8.4-10.2) mg/dL Total Bilirubin 0.5 (0.2-1.3) mg/dL AST 50 H (14-36) U/L ALT 63 H (6-35) U/L Alkaline Phosphatase 100 (38-126) U/L Total Protein 8.4 H (6.3-8.2) g/dL Albumin 5.0 (3.5-5.1) g/dL Urine Color Yellow (Yellow) Urine Appearance Cloudy H (Clear) Urine pH 5.5 (5.0-9.0) Ur Specific [place] 1.023 (1.001-1.035) Urine Protein 1+ H (Negative) mg/dL Urine Glucose (UA) Negative (Negative) mg/dL Urine Ketones Negative (Negative) mg/dL Ur Blood (Man) 3+ H (Negative) Urine Nitrate Negative (Negative) Urine Bilirubin Negative (Negative) Urine Urobilinogen 0.2 (<2.0) mg/dL Leukocyte Esterase Rfl 2+ H (Negative) ANDRIY/UL Urine RBC >100 H (0-2) /hpf Urine WBC 51-100 H (0-3) /hpf Ur Squamous Epith Cells Few (Few) /hpf Urine Bacteria None seen /hpf Urine Casts 0-2 <Sai Hernandez MD - Last Filed: 01/31/25 19:42> Imaging Data Attestation: I personally reviewed and interpreted this imaging study as follows: < Lori Costa PA-C - Last Filed: 01/31/25 14:48> Radiologist's impression: ITS Impressions Abdomen/Pelvis CT 01/31/25 12:12 IMPRESSION: 1. Mild left-sided hydronephrosis secondary to a 5 mm calcification in the proximal left ureter. 2. Fatty liver <Lori Costa PA-C - Last Filed: 01/31/25 14:48> Discharge Plan Discharge Clinical Impression: Calculus of proximal left ureter, Abnormal urinalysis <Lori Costa PA-C - Last Filed: 01/31/25 14:48> Patient Disposition: Other <Lori Costa PA-C - Last Filed: 01/31/25 14:48> Condition: Stable <Lori Costa PA-C - Last Filed: 01/31/25 14:48> Attestation Supervising Provider Attestation This visit was performed by both a physician and an APC. I performed all aspects of the MDM as documented. <Sai Hernandez MD - Last Filed: 01/31/25 19:42>
[2025-01-31] MEDS: cefTRIAXone 1 GM in SODIUM CHLORIDE 0.9% IV 50 ML 100 ML IVPB (12:03)
--- OUTSIDE RECORDS SUMMARY | 2025-01-31 12:55 | XMS_ITS | Clinical Summary ---
Author Organization [facility] Address [address] [place] [address] Care Team Providers Care Vegetable Grower Name Role Phone Ancelmo Brown MD Primary Care Provider Source Comments [facility],non-owned Affiliates and Associated Physician Practices is amultiple site organization consisting of ambulatory clinics and hospital sitesin [place], [place], [place] and [place]. This disclosure is being madepursuant to the Care Everywhere program and may not contain all information available regarding this patient. Last updated 18.[facility] Allergies No known active allergies Medications * [...] (07/20/2022): Added automatically from request for surgery [id number] Encounters Date Type Department Care Team Description 01/24/2025 Refill [facility] - Cardiology [address] [address] [place] [address] Cora Cardoso, SOCIAL WORK SUPERVISOR-PHARMACY TECHNICIAN INPATIENT Refill Request from Last 3 Months Immunizations [...] Comments Blood Pressure 130/82 08/16/2024 1:37 PM HOUSEKEEPING ATTENDANT Pulse 78 08/16/2024 1:37 PM HOUSEKEEPING ATTENDANT Temperature 36.9 C (98.4 F) 08/26/2022 2:30 PM CDT Respiratory Rate 16 08/26/2022 5:45 PM CDT Oxygen Saturation 98% 08/16/2024 1:37 PM HOUSEKEEPING ATTENDANT Inhaled Oxygen Concentration - - Weight 79.8 kg (176 lb) 08/16/2024 1:37 PM HOUSEKEEPING ATTENDANT Height 170.2 cm (5' 7) 08/16/2024 1:37 PM HOUSEKEEPING ATTENDANT Body Mass Index 27.57 08/16/2024 1:37 PM HOUSEKEEPING ATTENDANT Plan of Treatment Upcoming Encounters Date Type Department Care Team (Late st Contact Info) Description 08/15/2025 2:00 PM HOUSEKEEPING ATTENDANT Office Visit [facility] - Cardiology [address] [facility] [address] [place] [address] Duran Harrison MD [address] [facility] [address] [place] [address] Health Maintenance Due Date Last Done Comments [...] 7 - 26 mg/dL 08/26/2022 7:38 AM [facility] Creatinine 0.81 0.56 - 0.96 mg/dL 08/26/2022 7:38 AM [facility] Sodium 143 136 - 145 mmol/L 08/26/2022 7:38 AM [facility] Potassium 4.5 3.5 - 4.5 mmol/L 08/26/2022 7:38 AM [facility] Chloride 106 98 - 107 mmol/L 08/26/2022 7:38 AM [facility] CO2 26 22 - 29 mmol/L 08/26/2022 7:38 AM [facility] Glucose 109 70 - 115 mg/dL 08/26/2022 7:38 AM [facility] Calcium 9.7 8.4 - 10.2 mg/dL 08/26/2022 7:38 AM [facility] Anion Gap 16 8 - 18 08/26/2022 7:38 AM [facility] BUN/Creatinine Ratio 23 7 - 23 08/26/2022 7:38 AM [facility] Osmolality Calculated 299 270 - 300 mOsm/kg 08/26/2022 7:38 AM [facility] eGFR by CKD-EPI 86(L) >=90 mL/min/1.7 3 m2 08/26/2022 7:38 AM [facility] Blood BLOOD SPECIMEN / Unknown Venipuncture / Unknown 08/26/2022 6:54 AM CDT 08/26/2022 7:16 AM CDT Ольга Trujillo MD LAB - CHEMISTRY RAJESH VALENZUELA Final Result [facility] [address] [place] [address], [facility] [phone] from Last 3 Months or Most Recently Relevant to Health Maintenance Insurance Care Teams Vegetable Grower Relationship Specialty Start Date End Date Ancelmo Brown MD [address] [place] [address] PCP - General 05/10/22
--- OUTSIDE RECORDS SUMMARY | 2025-01-31 12:55 | XMS_ITS | Clinical Summary ---
Author Organization [facility] Address [address] [place] [id number] Care Team Providers Care Pcas Name Role Phone Ancelmo Brown MD Primary Care Provider [phone] Shawn Bowen MD Unavailable Evy Del Toro MD Unavailable [phone] Ольга Trujillo MD Unavailable [phone] Osei Patton MD PhD Unavailable Allergies [...] from 11/10/2023:Stage IA(pT1c, pN0(sn), cM0, G2, ER+, MI+, HER2-, Oncotype DX score: 23) - Signed by Osei Patton MD PhD on 12/06/2023 Malignant neoplasm of upper- inner quadrant of left breast in female, estrogen receptor positive 10/09/2023 Breast cancer screening, high risk patient 06/08 Monoallelic mutation of PALB2 gene 02/07/2023 Overview (02/07/2023): Images from the original note were not included. [facility] Genetic Panel Testing Amended January 2023 PALB2 c.3113+5GC clinically significant mutation identified. Family history of breast cancer 09/21/2017 Resolved Problems Problem Noted Date Diagnosed Date Resolved Date Heterogeneously dense tissue of both breasts on mammography 06/08/2023 07/01/2024 Encounter for screening mamm ogram for breast cancer 06/08/2023 07/01/2024 Breast cyst, right 09/20/2017 Encounters Date Type Department Care Team Description 11/12/2024 Telephone [facility] [address] [place] [address] [place] [address] Chichi Fofana MD from Last 3 Months [...] BREAST IMMEDI ATE / DELAYED W/ TISSUE EXPEDITER SERVICE ORDER 05/13/2024 - 06/12/2024 Medical History Medical History [...] on file Legal Sex Female 5:12 PM LEADERSHIP RECRUITER Gender Identity Not on file Sexual Orientation [...] wks, girl, Katy Perez, 9#3, DW at [facility] [employer]. Last Filed Vital Signs Vital Sign Reading [...] Description 02/04/2025 7:30 AM CDT Hospital Encounter [facility] [address] [place] [address] Chichi Fofana MD [address] [id number] [place] [address] 02/04/2025 7:30 AM CDT Anesthesia Event [facility] [address] [place] [address] Saskia Whitten NP [address] [place] [address] 02/04/2025 7:30 AM CDT - 02/04/2025 9:55 AM CDT Surgery [facility] Operating [facility] [address] [place] [address] Chichi Fofana MD [address] [id number] [place] [address] REVISION BREAST Scheduled Procedures Name Priority Associated [...] [employer] Implanted Type Area Waiter/Waitress Third Class Device Identifier Shelf Expiration Date Model / Serial / Lot [employer] Implant Mammary Natrelle Te Smooth 943n-Wz-61-T With Fourte 892u-Qd-56-T - [id number] - [id number] Implanted:Qty: 1 on 11/10/2023 by Chichi Fofana MD at [facility] Breast Left: Breast [employer] 02/14/2028 133S-FX-1 1-T / [id number] / [id number] [employer] Implant Mammary Natrelle Te Smooth 374n-Wn-61-T With Fourte 991x-Eo-86-T - [id number] - [id number] Implanted:Qty: 1 on 11/10/2023 by Chichi Fofana MD at [facility] Breast Right: Breast [employer] [id number] 01/10/2028 133S-FX-1 1-T / [id number] / [id number] [employer] Implant Breast High Profile Smooth Memorygel Boost 405cc Gel [id number] - [id number] - [id number] Implanted:Qty: 1 on 05/28/2024 by Chichi Fofana MD at [facility] Breast Right: Breast [employer] 08/13/2028 [id number] / [id number] / [employer] Implant Breast High Profile Smooth Memorygel Boost 405cc Gel [id number] - [id number] - [id number] Implanted:Qty: 1 on 05/28/2024 by Chichi Fofana MD at [facility] Breast Left: Breast [employer] 10/01/2028 [id number] / [id number] / [employer] Marker Biospy Site Top Hat Shape Senomark Guwta-Maqoqu-1m - [id number] Implanted:Qty: 1 on 09/28/2023 by Bennett Abel MD at [facility] Left: Breast [employer] [id number] 05/26/2024 SMARK-CONCHA ERO-2S / / [id number] Explanted Type Area Waiter/Waitress Third Class Device Identifier Shelf Expiration Date Model / Serial / Lot [employer] Implant Breast High Profile Smooth Memorygel Boost 405cc Gel [id number] - [id number] - [id number] Explanted:Qty: 1 on 05/28/2024 by Chichi Fofana MD at [facility] Breast [employer] 12/18/2028 [id number] / [id number] / Description:SIZER. IMPLANT A ND EXPLANT [employer] Implant Breast High Profile Smooth Memorygel Boost 370cc Gel [id number] - [id number] - [id number] Explanted:Qty: 1 on 05/28/2024 by Chichi Fofana MD at [facility] Breast Right: Breast [employer] 08/12/2028 [id number] / [id number] / Description:SIZER. IMPLANT A ND EXPLANT [employer] Implant Breast High Profile Smooth Memorygel Boost 405cc Gel [id number] - [id number] - [id number] Explanted:Qty: 1 on 05/28/2024 by Chichi Fofana MD at [facility] Breast Left: Breast [employer] 07/13/2028 [id number] / [id number] / Description:SIZER. IMPLANT A ND EXPLANT Procedures Procedure Name Priority Date/Time Associated Diagnosis Comments HEPATITIS C ANTIBODY Routine 06/26/2024 7:53 AM LEADERSHIP RECRUITER NAFLD (nonalcoholic fatty liver disease) Elevated LFTs Encounter for screening for other viral diseases SCREENING MAMMOGRAM BILATERAL W [place] Schedule Routine, Read Routine (OP Routine) 02/16/2023 9:47 AM CDT Screening mammogram, encounter for from Last 3 Months or Most Recently Relevant to Health Maintenance Results * Hepatitis C antibody Blood (06/26/2024 7:53 AM LEADERSHIP RECRUITER) Hep C Ab NON-REACTI VE NON-REACT DANIELLE [facility] Comment: HCV antibody was non-reactive. There is no laboratory evidence of HCV infection. In most cases, no further action is required. However, if recent HCV exposure is suspected, a test for HCV RNA (test code 93544) is suggested. For additional information please refer to http://education.iSnap/faq/QIO42c0 (This link is being provided for informational/ educational purposes only.) Blood 06/26/2024 7:53 AM LEADERSHIP RECRUITER 06/26/2024 7:56 AM LEADERSHIP RECRUITER Cecil Felder MD LAB MICROBIOLOGY - GENER AL ORDERABLES Final Result [facility] [address] [address] [id number] * Screening Mammogram Bilateral [place] (02/16/2023 [...] Date Diagnosed Date Autogenerated Problem 11/14/2024 Insurance [facility] H[facility]/PPO Address: [address] [place] [address] [facility] Address: [address] [place] [address] [facility] Address: [address] [place] [address] [facility] Address: [facility] [address] [phone] Advance Directives For more information, please contact: [phone] * Full Code (Latest Code Status on File) Date Activated Date Inactivated Comments 11/10/2023 5:13 PM 11/11/2023 3:20 PM * Full Code Date Activated Date Inactivated Comments 09/14/2023 1:14 PM 09/15/2023 10:31 AM Care Teams Pcas Relationship Specialty Start Date End Date Ancelmo Brown MD PCP - General Internal Medicine 09/21/17 Shawn Bowen MD [address] [facility] [address] [place] [address] Consulting Physician Obstetrics and Gynecology 09/21/17 KateyEvy MD [address] [facility] [address] DIV IM MEDICAL ONCOLOGY, [facility] [place] [address] [place] [address] Surgeon Breast Surgery 04/21/23 Ольга Trujillo MD [address] [facility] [address] DIV IM MEDICAL ONCOLOGY, [facility] [place] [address] [place] [address] Internal Medicine 08/31/23 Osei Patton MD PhD [address] [facility] [address] [address] DIV IM MEDICAL ONCOLOGY, [address] [place] [address] Medical Oncologist/Principal Network Architect Medical Oncology 10/20/23
--- OUTSIDE RECORDS SUMMARY | 2025-01-31 12:55 | XMS_ITS | Encounter Summary ---
Author Organization [facility] Address [address] [place] [address] Care Team Providers Care Permanent Mold Supervisor Name Role Phone Ancelmo Brown MD Primary Care Provider Encounter Details Date Type Department Care Team (Late st Contact Info) Description 05/06/2023 Telephone [facility] - Cardiology [address] [facility] [address] [place] [address] Ольга Trujillo MD [address] [place] [address] Social History Tobacco Use Types Packs/Day Years [...] reschedule appt on 06/21/[address] Trujillo. S ROOM CLERK documented in this encounter Plan of Treatment Upcoming Encounters Date Type Department Care Team (Late st Contact Info) Description 08/15/2025 2:00 PM PARTS ROOM CLERK Office Visit [facility] - Cardiology [address] [phone] Duran Harrison MD [address] [facility] [place] [address] [place] [address] documented as of this encounter Visit Diagnoses Not on filedocumented in this encounter Care Teams Permanent Mold Supervisor Relationship Specialty Start Date End Date Ancelmo Brown MD [address] [facility] [address] [place] [address] PCP - General 05/10/22 documented as of this encounter
--- NOTE | 2025-01-31 13:51 | PC.NURSE ---
DR STALEY TO BEDSIDE FOR EVAL
--- NOTE | 2025-01-31 14:00 | WPDANESEPPF ---
Anes - Initial Pre Proc Eval Procedure: Operation Date: 01/31/25 15:00 Proposed Procedures p Cystoscopy, Possible Left Retrograde Pyelogram, Possible Left Stone Extraction, Possible Left Stent Placement, Possible Holmium Laser Lithotripsy(Left) - Sukhi Maxwell MD Date/Time: 01/31/25 14:00 Pre Op Diagnosis: flank pain Patient Data Age: 59 Gender: F Height: 1.7 m Weight: 88 kg Last Vital Signs Temp 37.0 C 01/31/25 10:39 Pulse 54 L 01/31/25 10:39 Resp 18 01/31/25 10:39 BP 177/118 H 01/31/25 10:39 Pulse Ox 99 01/31/25 10:39 O2 Del Method Room Air 01/31/25 10:39 Allergies Allergy/AdvReac Type Severity Reaction Status Date / Time No Known Allergies Allergy Verified 01/31/25 10:59 Laboratory Tests 01/31/25 01/31/25 10:50 11:00 WBC 7.3 K/mm3 (4.5-10.0) RBC 5.06 M/mm3 (4.2-5.4) Hgb 14.7 g/dL (12.0-15.0) Hct 44.7 % (37.0-47.0) MCV 88.3 fl (80-100) MCH 29.1 pg (26-34) MCHC 32.9 g/dl (32-36) RDW 12.3 % (11.5-14.5) Plt Count 286 k/mm3 (150-375) MPV 9.5 fl (7.4-10.4) Immature Gran % (Auto) 0.5 % (0-0.5) Neut % (Auto) 62.7 % (45.5-73.1) Lymph % (Auto) 30.3 % (18.3-44.2) [place] % (Auto) 4.9 % (2.6-8.5) Eos % (Auto) 1.1 % (0-4.4) Baso % (Auto) 0.5 % (0.2-1.2) Lymph # (Auto) 2.22 K/mm3 (0.9-3.2) Kimball # (Auto) 0.4 K/mm3 (0.1-0.6) Eos # (Auto) 0.1 K/mm3 (0-0.3) Baso # (Auto) 0.0 K/mm3 (0.0-0.1) Abs Immat Gran (auto) 0.04 H K/mm3 (0.00-0.031) Absolute Neuts (auto) 4.6 K/mm3 (1.3-6.7) Absolute Nucleated RBC 0.000 K/mm3 (0.0-0.012) Nucleated RBC % 0.0 % (0.0-0.2) Sodium 138 mmol/L (137-145) Potassium 4.1 mmol/L (3.4-5.0) Chloride 103 mmol/L (98-107) Carbon Dioxide 22 mmol/L (22-30) Anion Gap 13 H mmol/L (4-12) BUN 23 H mg/dL (7-17) Creatinine 0.94 mg/dL (0.7-1.0) Estim Creat Clear Calc 57 ml/min Estimated GFR > 60 (59 - ) Glucose 121 H mg/dL (65-110) Calcium 10.4 H mg/dL (8.4-10.2) Total Bilirubin 0.5 mg/dL (0.2-1.3) AST 50 H U/L (14-36) ALT 63 H U/L (6-35) Alkaline Phosphatase 100 U/L (38-126) Total Protein 8.4 H g/dL (6.3-8.2) Albumin 5.0 g/dL (3.5-5.1) Urine Color Yellow (Yellow) Urine Appearance Cloudy H (Clear) Urine pH 5.5 (5.0-9.0) Ur Specific [place] 1.023 (1.001-1.035) Urine Protein 1+ H mg/dL (Negative) Urine Glucose (UA) Negative mg/dL (Negative) Urine Ketones Negative mg/dL (Negative) Ur Blood (Man) 3+ H (Negative) Urine Nitrate Negative (Negative) Urine Bilirubin Negative (Negative) Urine Urobilinogen 0.2 mg/dL (<2.0) Leukocyte Esterase Rfl 2+ H ANDRIY/UL (Negative) Urine RBC >100 H /hpf (0-2) Urine WBC 51-100 H /hpf (0-3) Ur Squamous Epith Cells Few /hpf (Few) Urine Bacteria None seen /hpf Urine Casts 0-2 Patient hx anesthesia problems: none Family hx anesthesia problems: none Results Review: All pre-operative results and documents have been reviewed as part of the pre-operative evaluation. [facility] Past Medical History Medical History (Updated 01/31/25 @ 14:30 by Joe Chandler DO) History of breast cancer Atrial fibrillation Surgical History Surgical History (Updated 01/31/25 @ 14:30 by Joe Chandler DO) H/O cardiac radiofrequency ablation Anes - Eval Final PreProcedure Day of Procedure 01/31/25 14:00 Patient weight: obese Heart: regular rate and rhythm Lungs: clear to auscultation Airway: Mallampati scale class II Neurological: alert and oriented Last oral intake: >/= 8 hours ASA classification: III Emergent: no Anesthetic plan: proceed Anesthesia type and monitoring: general ETT and standard monitoring Results Review: All pre-operative results and documents have been reviewed as part of the pre-operative evaluation. Informed Consent: The patient's anesthetic plan and its attendant risks and benefits were discussed with the patient/family/POA. Questions were solicited and answers provided to the satisfaction of the patient/family/POA.
--- NOTE | 2025-01-31 14:06 | P.HP_ITS ---
History of Present Illness History of Present Illness Consent: Risks, benefits, and alternatives have been discussed and questions answered. Patient agrees to proceed with procedure. Chief complaint: flank pain Narrative: Pleasant young lady who has had a tough year with breast cancer has no prior significant urological history. She is scheduled for breast reconstructive surgery 4 days per presents to the ER with acute flank pain and nausea. She has had no fevers chills or gross hematuria. CT imaging demonstrates a 5 mm left proximal ureteral stone. Although she is afebrile and has no leukocytosis her urine does show some pyuria but may be contaminated. Review of Systems Review of Systems: All systems reviewed & are unremarkable except as noted in HPI and below Meds Home Medications and Allergies Allergies Allergy/AdvReac Type Severity Reaction Status Date / Time No Known Allergies Allergy Verified 01/31/25 10:59 Vital Signs Vital Signs - 24 hr 01/31/25 10:39 Temperature 98.6 F Pulse Rate 54 L Respiratory Rate 18 Blood Pressure 177/118 H Pulse Oximetry 99 Oxygen Delivery Room Air Assessment and Plan Assessment and plan (1) Left ureteral calculus: Code(s): N20.1 - Calculus of ureter Status: Acute Assessment and Plan: * Patient has a 5 mm slightly obstructing left proximal ureteral stone with possible urinary tract infection * After long discussion with patient I indicated that we clearly should place a left ureteral stent. I may make a simple attempt at endoscopic stone extraction but won't go to the extent of performing intracorporal lithotripsy.
--- NOTE | 2025-01-31 14:09 | WPDHPUPDATE1 ---
History and Physical Update Update Date/Time: 01/31/25 14:09 History and Physical has been reviewed, including an updated exam of the patient. There are NO changes in the patient's condition. Risks, benefits, and alternatives have been discussed and questions answered. Patient agrees to proceed with procedure. Plan today will be for cystoscopy with left ureteral stent placement, possible ureteroscopy with stone extraction.
--- OUTSIDE RECORDS SUMMARY | 2025-01-31 14:20 | XMS_ITS | Clinical Summary ---
Author Organization [facility] Address [address] [place] [address] Care Team Providers Care Data Entry Analyst Name Role Phone Ancelmo Brown MD Primary Care Provider Source Comments [facility],non-owned Affiliates and Associated Physician Practices is amultiple site organization consisting of ambulatory clinics and hospital sitesin [place], [place], [place] and [place]. This disclosure is being madepursuant to the Care Everywhere program and may not contain all information available regarding this patient. Last updated 18.[facility] Allergies No known active allergies Medications * [...] (07/20/2022): Added automatically from request for surgery [id number] Encounters Date Type Department Care Team Description 01/24/2025 Refill [facility] - Cardiology [address] [place], [facility] [address] [place] [address] Cora Cardoso, DROP HAMMER MECHANIC-FREIGHT AIR BRAKE FITTER Refill Request from Last 3 Months Immunizations [...] Comments Blood Pressure 130/82 08/16/2024 1:37 PM AERIAL PLANTING AND CULTIVATION MANAGER Pulse 78 08/16/2024 1:37 PM AERIAL PLANTING AND CULTIVATION MANAGER Temperature 36.9 C (98.4 F) 08/26/2022 2:30 PM CDT Respiratory Rate 16 08/26/2022 5:45 PM CDT Oxygen Saturation 98% 08/16/2024 1:37 PM AERIAL PLANTING AND CULTIVATION MANAGER Inhaled Oxygen Concentration - - Weight 79.8 kg (176 lb) 08/16/2024 1:37 PM AERIAL PLANTING AND CULTIVATION MANAGER Height 170.2 cm (5' 7) 08/16/2024 1:37 PM AERIAL PLANTING AND CULTIVATION MANAGER Body Mass Index 27.57 08/16/2024 1:37 PM AERIAL PLANTING AND CULTIVATION MANAGER Plan of Treatment Upcoming Encounters Date Type Department Care Team (Late st Contact Info) Description 08/15/2025 2:00 PM AERIAL PLANTING AND CULTIVATION MANAGER Office Visit [facility] - Cardiology [address] [place], [facility] [address] [place] [address] Duran Harrison MD [address] [place], [facility] [address] [place] [address] Health Maintenance Due Date Last Done Comments [...] 7 - 26 mg/dL 08/26/2022 7:38 AM [facility] Creatinine 0.81 0.56 - 0.96 mg/dL 08/26/2022 7:38 AM [facility] Sodium 143 136 - 145 mmol/L 08/26/2022 7:38 AM [facility] Potassium 4.5 3.5 - 4.5 mmol/L 08/26/2022 7:38 AM [facility] Chloride 106 98 - 107 mmol/L 08/26/2022 7:38 AM [facility] CO2 26 22 - 29 mmol/L 08/26/2022 7:38 AM [facility] Glucose 109 70 - 115 mg/dL 08/26/2022 7:38 AM [facility] Calcium 9.7 8.4 - 10.2 mg/dL 08/26/2022 7:38 AM [facility] Anion Gap 16 8 - 18 08/26/2022 7:38 AM [facility] BUN/Creatinine Ratio 23 7 - 23 08/26/2022 7:38 AM [facility] Osmolality Calculated 299 270 - 300 mOsm/kg 08/26/2022 7:38 AM [facility] eGFR by CKD-EPI 86(L) >=90 mL/min/1.7 3 m2 08/26/2022 7:38 AM [facility] Blood BLOOD SPECIMEN / Unknown Venipuncture / Unknown 08/26/2022 6:54 AM CDT 08/26/2022 7:16 AM CDT Ольга Trujillo MD LAB - CHEMISTRY RAJESH VALENZUELA Final Result [facility] [address] [place] [address], [facility] [phone] from Last 3 Months or Most Recently Relevant to Health Maintenance Insurance Care Teams Data Entry Analyst Relationship Specialty Start Date End Date Ancelmo Brown MD [address] [place] [address] PCP - General 05/10/22
--- OUTSIDE RECORDS SUMMARY | 2025-01-31 14:20 | XMS_ITS | Encounter Summary ---
Author Organization [facility] Address [address] [facility] [place] [address] Care Team Providers Care Golf Technician Name Role Phone Ancelmo Brown MD Primary Care Provider Encounter Details Date Type Department Care Team (Late st Contact Info) Description 05/06/2023 Telephone [facility] - Cardiology [address] [facility], [facility] [address] [place] [address] Ольга Trujillo MD [address] [place] [address] Social History Tobacco Use Types Packs/Day Years [...] reschedule appt on 06/21/[address] Trujillo. DEVELOPMENT MANAGER documented in this encounter Plan of Treatment Upcoming Encounters Date Type Department Care Team (Late st Contact Info) Description 08/15/2025 2:00 PM ICT DEVELOPMENT MANAGER Office Visit [facility] - Cardiology [address] [address] Duran Harrison MD [address] [facility], [place] [phone] [place] [address] documented as of this encounter Visit Diagnoses Not on filedocumented in this encounter Care Teams Golf Technician Relationship Specialty Start Date End Date Ancelmo Brown MD [address] [facility] [address] [place] [address] PCP - General 05/10/22 documented as of this encounter
--- OUTSIDE RECORDS SUMMARY | 2025-01-31 14:20 | XMS_ITS | Clinical Summary ---
Author Organization [facility] Address [address] [place] [address] Care Team Providers Care Automotive Glass Mechanic Name Role Phone Ancelmo Brown MD Primary Care Provider Shawn Bowen MD Unavailable Evy Del Toro MD Unavailable [phone] Ольга Trujillo MD Unavailable [phone] Osei Patton MD PhD Unavailable Allergies [...] from 11/10/2023:Stage IA(pT1c, pN0(sn), cM0, G2, ER+, KY+, HER2-, Oncotype DX score: 23) - Signed by Osei Patton MD PhD on 12/06/2023 Malignant neoplasm of upper- inner quadrant of left breast in female, estrogen receptor positive 10/09/2023 Breast cancer screening, high risk patient 06/08 Monoallelic mutation of PALB2 gene 02/07/2023 Overview (02/07/2023): Images from the original note were not included. [facility] Genetic Panel Testing Amended January 2023 PALB2 c.3113+5GC clinically significant mutation identified. Family history of breast cancer 09/21/2017 Resolved Problems Problem Noted Date Diagnosed Date Resolved Date Heterogeneously dense tissue of both breasts on mammography 06/08/2023 07/01/2024 Encounter for screening mamm ogram for breast cancer 06/08/2023 07/01/2024 Breast cyst, right 09/20/2017 Encounters Date Type Department Care Team Description 11/12/2024 Telephone [facility] [place] [place] Surgery [address] [facility] [address] [place] [address] [place] [address] Chichi Fofana MD from Last 3 Months [...] BREAST IMMEDI ATE / DELAYED W/ TISSUE VISUAL DEVELOPER 05/13/2024 - 06/12/2024 Medical History Medical History [...] on file Legal Sex Female 5:12 PM VETERINARY LABORATORY TECHNICIAN Gender Identity Not on file Sexual Orientation [...] wks, girl, Katy Perez, 9#3, DW at [facility] [employer] [employer]. Last Filed Vital Signs Vital Sign Reading [...] 02/04/2025 7:30 AM CDT Hospital Encounter [facility] [address] [place] [address] Chichi Fofana MD [address] [phone] [place] [address] 02/04/2025 7:30 AM CDT Anesthesia Event [facility] [address] [place] [address] Saskia Whitten NP [address] [place] [address] 02/04/2025 7:30 AM CDT - 02/04/2025 9:55 AM CDT Surgery [facility] [address] [place] [address] Chichi Fofana MD [address] [phone] [place] [address] REVISION BREAST Scheduled Procedures Name Priority Associated [...] [employer] Implanted Type Area Department Head Device Identifier Shelf Expiration Date Model / Serial / Lot [employer] Implant Mammary Natrelle Te Smooth 046i-Hl-64-T With Fourte 952a-Cn-13-T - [id number] - [id number] Implanted:Qty: 1 on 11/10/2023 by Chichi Fofana MD at [facility] Breast Left: Breast [employer] 02/14/2028 133S-FX-1 1-T / [id number] / [id number] [employer] Implant Mammary Natrelle Te Smooth 742p-Pm-95-T With Fourte 496g-Aa-84-T - [id number] - [id number] Implanted:Qty: 1 on 11/10/2023 by Chichi Fofana MD at [facility] Breast Right: Breast [employer]gan [employer] [id number] 01/10/2028 133S-FX-1 1-T / [id number] / [id number] [employer] Implant Breast High Profile Smooth Memorygel Boost 405cc Gel [id number] - [id number] - [id number] Implanted:Qty: 1 on 05/28/2024 by Chichi Fofana MD at [facility] Breast Right: Breast [employer] 08/13/2028 [id number] / [id number] / [employer] Implant Breast High Profile Smooth Memorygel Boost 405cc Gel Bhch960 - [id number] - [id number] Implanted:Qty: 1 on 05/28/2024 by Chichi Fofana MD at [facility] Breast Left: Breast [employer] 10/01/2028 [id number] / [id number] / [employer] Marker Biospy Site Top Hat Shape [employer] Ltwvp-Vmdotb-1v - [id number] Implanted:Qty: 1 on 09/28/2023 by Bennett Abel MD at [facility] Left: Breast [employer] [id number] 05/26/2024 SMARK-CONCHA ERO-2S / / [id number] Explanted Type Area Department Head Device Identifier Shelf Expiration Date Model / Serial / Lot [employer] Implant Breast High Profile Smooth Memorygel Boost 405cc Gel [id number] - [id number] - [id number] Explanted:Qty: 1 on 05/28/2024 by Chichi Fofana MD at [facility] Breast [employer] 12/18/2028 [id number] / [id number] / Description:SIZER. IMPLANT A ND EXPLANT [employer] Implant Breast High Profile Smooth Memorygel Boost 370cc Gel [id number] - [id number] - [id number] Explanted:Qty: 1 on 05/28/2024 by Chichi Fofana MD at [facility] Breast Right: Breast [employer] 08/12/2028 [id number] / [id number] / Description:SIZER. IMPLANT A ND EXPLANT [employer] Implant Breast High Profile Smooth Memorygel Boost 405cc Gel [id number] - [id number] - [id number] Explanted:Qty: 1 on 05/28/2024 by Chichi Fofana MD at [facility] Breast Left: Breast [employer] 07/13/2028 [id number] / [id number] / Description:SIZER. IMPLANT A ND EXPLANT Procedures Procedure Name Priority Date/Time Associated Diagnosis Comments HEPATITIS C ANTIBODY Routine 06/26/2024 7:53 AM VETERINARY LABORATORY TECHNICIAN NAFLD (nonalcoholic fatty liver disease) Elevated LFTs Encounter for screening for other viral diseases SCREENING MAMMOGRAM BILATERAL W [place] Schedule Routine, Read Routine (OP Routine) 02/16/2023 9:47 AM CDT Screening mammogram, encounter for from Last 3 Months or Most Recently Relevant to Health Maintenance Results * Hepatitis C antibody Blood (06/26/2024 7:53 AM VETERINARY LABORATORY TECHNICIAN) Hep C Ab NON-REACTI VE NON-REACT DANIELLE [facility] Comment: HCV antibody was non-reactive. There is no laboratory evidence of HCV infection. In most cases, no further action is required. However, if recent HCV exposure is suspected, a test for HCV RNA (test code 23066) is suggested. For additional information please refer to http://education.Alohar Mobile/faq/DTE18z8 (This link is being provided for informational/ educational purposes only.) Blood 06/26/2024 7:53 AM VETERINARY LABORATORY TECHNICIAN 06/26/2024 7:56 AM VETERINARY LABORATORY TECHNICIAN Cecil Felder MD LAB MICROBIOLOGY - GENER AL ORDERABLES Final Result [facility] [place] [address] [address] [id number] * Screening Mammogram Bilateral [place] (02/16/2023 [...] Date Diagnosed Date Autogenerated Problem 11/14/2024 Insurance [facility] [place] [id number] Advance Directives For more information, please contact: [phone] * Full Code (Latest Code Status on File) Date Activated Date Inactivated Comments 11/10/2023 5:13 PM 11/11/2023 3:20 PM * Full Code Date Activated Date Inactivated Comments 09/14/2023 1:14 PM 09/15/2023 10:31 AM Care Teams Automotive Glass Mechanic Relationship Specialty Start Date End Date Ancelmo Brown MD PCP - General Internal Medicine 09/21/17 Shawn Bowen MD [address] [facility] [address] [place] [address] Consulting Physician Obstetrics and Gynecology 09/21/17 KateyEvy MD [address] [facility] [address] DIV IM MEDICAL ONCOLOGY, [facility] [address] [place] [address] Surgeon Breast Surgery 04/21/23 Ольга Trujillo MD [address] [facility] [address] DIV IM MEDICAL ONCOLOGY, [facility] [address] [place] [address] Internal Medicine 08/31/23 Osei Patton MD PhD [phone] [facility] [address] DIV IM MEDICAL ONCOLOGY, [address] [place] [address] Medical Oncologist/Chocolate Production Machine Operator Medical Oncology 10/20/23
--- OUTSIDE RECORDS SUMMARY | 2025-01-31 14:48 | XMS_ITS | Encounter Summary ---
Author Organization [facility] Address [address] [place] [address] Care Team Providers Care Impregnator Helper Name Role Phone Ancelmo Brown MD Primary Care Provider [phone] Encounter Details Date Type Department Care Team (Late st Contact Info) Description 05/06/2023 Telephone [facility] - Cardiology [address] [place] [place] [address], [facility] [address] [place] [address] Ольга Trujillo MD [address] [place] [address] Social History Tobacco Use Types Packs/Day Years [...] reschedule appt on 06/21/[address] Trujillo. ESSORI PRESCHOOL TEACHER documented in this encounter Plan of Treatment Upcoming Encounters Date Type Department Care Team (Late st Contact Info) Description 08/15/2025 2:00 PM MONTESSORI PRESCHOOL TEACHER Office Visit [facility] - Cardiology [address] [phone] Duran Harrison MD [address] [place] [place], [place] [phone] [place] [address] documented as of this encounter Visit Diagnoses Not on filedocumented in this encounter Care Teams Impregnator Helper Relationship Specialty Start Date End Date Ancelmo Brown MD [address] [facility] [address] [place] [address] PCP - General 05/10/22 documented as of this encounter
--- OUTSIDE RECORDS SUMMARY | 2025-01-31 14:48 | XMS_ITS | Clinical Summary ---
Author Organization [facility] D Address [address] [place] [address] Care Team Providers Care Radio Television Announcer Name Role Phone Ancelmo Brown MD Primary Care Provider Shawn Bowen MD Unavailable [phone] Evy Del Toro MD Unavailable [phone] Ольга Trujillo MD Unavailable [phone] Osei Patton MD PhD Unavailable Allergies [...] from 11/10/2023:Stage IA(pT1c, pN0(sn), cM0, G2, ER+, AZ+, HER2-, Oncotype DX score: 23) - Signed by Osei Patton MD PhD on 12/06/2023 Malignant neoplasm of upper- inner quadrant of left breast in female, estrogen receptor positive 10/09/2023 Breast cancer screening, high risk patient 06/08 Monoallelic mutation of PALB2 gene 02/07/2023 Overview (02/07/2023): Images from the original note were not included. [place] qui dit Oui Genetic Panel Testing Amended January 2023 PALB2 c.3113+5GC clinically significant mutation identified. Family history of breast cancer 09/21/2017 Resolved Problems Problem Noted Date Diagnosed Date Resolved Date Heterogeneously dense tissue of both breasts on mammography 06/08/2023 07/01/2024 Encounter for screening mamm ogram for breast cancer 06/08/2023 07/01/2024 Breast cyst, right 09/20/2017 Encounters Date Type Department Care Team Description 11/12/2024 Telephone [facility] Surgery [address] [facility] 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 Last Filed Vital Signs Vital Sign [...] Description 02/04/2025 7:30 AM CDT Hospital Encounter [facility] Operating [facility] [address] [place] [address] Chichi Fofana MD [address] [id number] [place] [address] 02/04/2025 7:30 AM CDT Anesthesia Event [facility] Operating Room [facility] [address] [place] [address] Saskia Whitten NP [address] [place] [address] 02/04/2025 7:30 AM CDT - 02/04/2025 9:55 AM CDT Surgery [facility] Operating Room [facility] [address] [place] [address] Chichi Fofana MD [address] [id number] [place] [address] REVISION BREAST Scheduled Procedures Name Priority Associated [...] [employer] Implanted Type Area [employer] Teacher Device Identifier Shelf Expiration Date Model / Serial / Lot [employer] Implant Mammary Natrelle Te Smooth 548h-Ag-90-T With Fourte 080y-Ed-77-T - [id number] - [id number] Implanted:Qty: 1 on 11/10/2023 by Chichi Fofana MD at [facility] Breast Left: Breast [employer] 02/14/2028 133S-FX-1 1-T / [id number] / [id number] [employer] Implant Mammary Natrelle Te Smooth 337b-Wn-80-T With Fourte 541h-Gd-67-T - [id number] - [id number] Implanted:Qty: 1 on 11/10/2023 by Chichi Fofana MD at [facility] Breast Right: Breast [employer] [id number] 01/10/2028 133S-FX-1 1-T / [id number] / [id number] [employer] Implant Breast High Profile Smooth Memorygel Boost 405cc Gel [id number] - [id number] - [id number] Implanted:Qty: 1 on 05/28/2024 by Chichi Fofana MD at [facility] Breast Right: Breast [employer] 08/13/2028 [id number] / [id number] / [employer] Implant Breast High Profile Smooth Memorygel Boost 405cc Gel [id number] - [id number] - [id number] Implanted:Qty: 1 on 05/28/2024 by Chichi Fofana MD at [facility] Breast Left: Breast [employer] 10/01/2028 [id number] / [id number] / [employer] Marker Biospy Site Top Hat Shape Senomark Uhbgt-Qxtqui-0r - [id number] Implanted:Qty: 1 on 09/28/2023 by Bennett Abel MD at [facility] Left: Breast [employer] [id number] 05/26/2024 SMARK-CONCHA ERO-2S / / [id number] Explanted Type Area College Teacher Device Identifier Shelf Expiration Date Model / Serial / Lot [employer] Implant Breast High Profile Smooth Memorygel Boost 405cc Gel [id number] - [id number] - [id number] Explanted:Qty: 1 on 05/28/2024 by Chichi Fofana MD at [facility] Breast [employer] 12/18/2028 [id number] / [id number] / Description:SIZER. IMPLANT A ND EXPLANT [employer] Implant Breast High Profile Smooth Memorygel Boost 370cc Gel Ekqu148 - [id number] - [id number] Explanted:Qty: 1 on 05/28/2024 by Chichi Fofana MD at [facility] Breast Right: Breast [employer] 08/12/2028 [id number] / [id number] / Description:SIZER. IMPLANT A ND EXPLANT [employer] Implant Breast High Profile Smooth Memorygel Boost 405cc Gel [id number] - [id number] - [id number] Explanted:Qty: 1 on 05/28/2024 by Chichi Fofana MD at [facility] Breast Left: Breast [employer] 07/13/2028 [id number] / [id number] / Description:SIZER. IMPLANT A ND EXPLANT Procedures Procedure Name Priority Date/Time Associated Diagnosis Comments HEPATITIS C ANTIBODY Routine 06/26/2024 7:53 AM TECHNICIAN INVENTORY SPECIALIST NAFLD (nonalcoholic fatty liver disease) Elevated LFTs Encounter for screening for other viral diseases SCREENING MAMMOGRAM BILATERAL W [place] Schedule Routine, Read Routine (OP Routine) 02/16/2023 9:47 AM CDT Screening mammogram, encounter for from Last 3 Months or Most Recently Relevant to Health Maintenance Results * Hepatitis C antibody Blood (06/26/2024 7:53 AM TECHNICIAN INVENTORY SPECIALIST) Hep C Ab NON-REACTI VE NON-REACT DANIELLE [facility] Comment: HCV antibody was non-reactive. There is no laboratory evidence of HCV infection. In most cases, no further action is required. However, if recent HCV exposure is suspected, a test for HCV RNA (test code 11870) is suggested. For additional information please refer to http://education.SwapDrive/faq/SSS91l2 (This link is being provided for informational/ educational purposes only.) Blood 06/26/2024 7:53 AM TECHNICIAN INVENTORY SPECIALIST 06/26/2024 7:56 AM TECHNICIAN INVENTORY SPECIALIST Cecil Felder MD LAB MICROBIOLOGY - GENER AL ORDERABLES Final Result SAMRA [place]lain[place]Rubens [address] [address] [phone] * Screening Mammogram Bilateral [place] (02/16/2023 [...] Date Autogenerated Problem 11/14/2024 Insurance [employer] [place] [id number] Advance Directives For more information, please contact: [phone] * Full Code (Latest Code Status on File) Date Activated Date Inactivated Comments 11/10/2023 5:13 PM 11/11/2023 3:20 PM * Full Code Date Activated Date Inactivated Comments 09/14/2023 1:14 PM 09/15/2023 10:31 AM Care Teams Radio Television Announcer Relationship Specialty Start Date End Date Ancelmo Brown MD PCP - General Internal Medicine 09/21/17 Shawn Bowen MD [address] [facility] [address] [place] [address] Consulting Physician Obstetrics and Gynecology 09/21/17 KateyEvy MD [address] [facility] [facility] [address] DIV IM MEDICAL ONCOLOGY, [facility] [address] [place] [address] Surgeon Breast Surgery 04/21/23 Ольга Trujillo MD [address] [facility] [address] DIV IM MEDICAL ONCOLOGY, [facility] [address] [place] [address] Internal Medicine 08/31/23 Osei Patton MD PhD [address] [facility] [address] DIV IM MEDICAL ONCOLOGY, [address] [place] [address] Medical Oncologist/Technology Solutions Architect Medical Oncology 10/20/23
--- OUTSIDE RECORDS SUMMARY | 2025-01-31 14:48 | XMS_ITS | Clinical Summary ---
Author Organization [facility] [employer] Address [address] [place] [address] Care Team Providers Care It Risk And Assurance Manager Name Role Phone Ancelmo Brown MD Primary Care Provider [phone] [facility] [employer],non-owned Affiliates and Associated Physician Practices is amultiple site organization consisting of ambulatory clinics and hospital sitesin [place], [place], [place] and [place]. This disclosure is being madepursuant to the Care Everywhere program and may not contain all information available regarding this patient. Last updated 18.[facility] [employer] Allergies No known active allergies Medications * [...] (07/20/2022): Added automatically from request for surgery [id number] Encounters Date Type Department Care Team Description 01/24/2025 Refill [facility] - Cardiology [address] [facility], [facility] [address] [place] [address] Cora Cardoso, QUALITY ASSURANCE ASSESSOR-RIB TRIM SEPARATOR Refill Request from Last 3 Months Immunizations [...] Comments Blood Pressure 130/82 08/16/2024 1:37 PM EMERGENCY REGISTRAR Pulse 78 08/16/2024 1:37 PM EMERGENCY REGISTRAR Temperature 36.9 C (98.4 F) 08/26/2022 2:30 PM CDT Respiratory Rate 16 08/26/2022 5:45 PM CDT Oxygen Saturation 98% 08/16/2024 1:37 PM EMERGENCY REGISTRAR Inhaled Oxygen Concentration - - Weight 79.8 kg (176 lb) 08/16/2024 1:37 PM EMERGENCY REGISTRAR Height 170.2 cm (5' 7) 08/16/2024 1:37 PM EMERGENCY REGISTRAR Body Mass Index 27.57 08/16/2024 1:37 PM EMERGENCY REGISTRAR Plan of Treatment Upcoming Encounters Date Type Department Care Team (Late st Contact Info) Description 08/15/2025 2:00 PM EMERGENCY REGISTRAR Office Visit [facility] - Cardiology [address] [facility], [facility] [address] [place] [address] Duran Harrison MD [address] [facility], [facility] [address] [place] [address] Health Maintenance Due Date Last Done Comments [...] 7 - 26 mg/dL 08/26/2022 7:38 AM [facility] Creatinine 0.81 0.56 - 0.96 mg/dL 08/26/2022 7:38 AM [facility] Sodium 143 136 - 145 mmol/L 08/26/2022 7:38 AM [facility] Potassium 4.5 3.5 - 4.5 mmol/L 08/26/2022 7:38 AM [facility] Chloride 106 98 - 107 mmol/L 08/26/2022 7:38 AM [facility] CO2 26 22 - 29 mmol/L 08/26/2022 7:38 AM [facility] Glucose 109 70 - 115 mg/dL 08/26/2022 7:38 AM [facility] Calcium 9.7 8.4 - 10.2 mg/dL 08/26/2022 7:38 AM [facility] Anion Gap 16 8 - 18 08/26/2022 7:38 AM [facility] BUN/Creatinine Ratio 23 7 - 23 08/26/2022 7:38 AM [facility] Osmolality Calculated 299 270 - 300 mOsm/kg 08/26/2022 7:38 AM [facility] eGFR by CKD-EPI 86(L) >=90 mL/min/1.7 3 m2 08/26/2022 7:38 AM [facility] Blood BLOOD SPECIMEN / Unknown Venipuncture / Unknown 08/26/2022 6:54 AM CDT 08/26/2022 7:16 AM CDT Ольга Trujillo MD LAB - CHEMISTRY RAJESH VALENZUELA Final Result [facility] [address] [place] [address], [facility] [phone] from Last 3 Months or Most Recently Relevant to Health Maintenance Insurance Care Teams It Risk And Assurance Manager Relationship Specialty Start Date End Date Ancelmo Bronw MD [address] [place] [address] PCP - General 05/10/22
--- NOTE | 2025-01-31 14:52 | S_PTH ---
PATIENT: Joi Noland LOC: [facility] U#:[id number] AGE/SX: 59/F ROOM: RE01/31/[address]: Sukhi Maxwell MD : 1965 BED: DIS: 01/31/2025 SPEC #: [id number] RECD: 02/01/25 07:10 STATUS: KIKO REQ #: [id number] RANJANA: 01/31/25 14:[address]: Sukhi Maxwell DEPT: [facility] Surgical RECD BY: Kerri Burgos ENTERED: 02/01/25 07:10 SP TYPE: Surgical OTHR DR: Ancelmo Brown, Tissues: A - Stone Procedures: Gross Exam Level 1 Crystalline Analysis
[2025-01-31] MEDS: LACTATED RINGERS 1,000 ML 30 ML IV CONT (15:00)
--- NOTE | 2025-01-31 15:13 | P.OP_ITS ---
Procedure Note - Detailed Date of Procedure 01/31/25 Pre-op Diagnosis Left proximal ureteral stone, possible urinary tract infection Post-op Diagnosis Same Procedure Performed Cystoscopy, left ureteroscopy with stone extraction, left retrograde pyelogram, left ureteral stent placement Surgeon Sukhi Maxwell MD Anesthesia General Description of Procedure Patient is brought to the operative suite where she was prepped draped in routine sterile fashion while in dorsal lithotomy position after the uneventful induction of a general LMA anesthetic. Cystoscopy was undertaken with a 19 F rigid cystoscope. Bladder neck and urethra endoscopically normal. There was NO hyperemia of the bladder or ureteral mucosa to suggest acute bacterial cystitis. There is no intravesical foreign body or neoplasm. She has a single orthotopic ureteral orifice bilaterally. A 0.035 in glidewire was advanced in the left lloyd al pelvis under fluoroscopy. Retrograde pyelogram demonstrates persistent mild obstruction in the proximal ureter. I attempted to reach the stone with a semi- rigid ureteral scope without success. I replaced that for a 7.5 F flexible ureteral scope. Stone was easily visualized and I was able to extracted intact with ease with a 1.9 F disposable stone basket. This did not require intracorporal lithotripsy. Because of the potential for possible urinary tract infection I did place a 4.8 F variable length stent with the proximal coil in left renal pelvis and distal coil in the bladder. Scopes wires removed she was taken recovery room good condition Pathology Yes Complications No immediate complications Condition Stable
== END 2025-01-31 16:28 | disposition home or self-care (01) ==
LOC: ANHED 14:45 → ANHSURGERY 14:45
PROVIDERS: Emergency Provider Physician Assistant; PCP Internal Medicine; Visit Provider Urology
PROC: (CPT 52352; principal; 2025-01-31 15:00)
DX: N20.1 Calculus of ureter (principal); I48.91 Unspecified atrial fibrillation; E66.9 Obesity, unspecified; Z68.30 Body mass index [BMI] 30.0-30.9, adult; Z85.3 Personal history of malignant neoplasm of breast; Z86.79 Personal history of other diseases of the circulatory system
CPT/HCPCS: 52356; 36415; 74018; 74176; 74420; 80053; 81001; 82365; 85025; 87086; 88300; 96361; 96365; 96375; 96376; 99285; C1769; C2617; J0330; J0696; J1100; J1171; J2405; J2704; J3010; J7030; J7120; Q9966